=== PATIENT | male | born 1985 | race Caucasian/White ===

== ENCOUNTER 2017-04-16 22:13 | Emergency (ER) | payer OTHER ==
[~2017-04-16] VITALS: Ht 134.6 cm; Wt 43.1 kg
[~2017-04-16 22:13] MED LIST: ACET500 PT; AMPDEX30CR PT; AMPDEX5 PT; Acephen650 MG PR; Acidophilus La100 GM PT; Amoxicilli400 MG/5 M PO; CEPH125SU PO; CHILDREN'S325 MG/10. PO; CHILDREN'S325 MG/10. PT; CULTURELLE KID1 EAC2 PT; Duoneb 2.5-0.5 M3 ML INH; ERYT.5TO OU; FAMO20 PT; FAMO8SU PT; GLIP5 PEG; GLIP5 PO; GLIP5 PT; IBUP100S PO; Invanz1 GM IV; LACT10SY PT; LAVAP17G PO; LAVAP17G PT; LEVFLO250; LEVO750 PEG; LEVO750 PO; LEVO750 PT; LINZESS145 MCG PO; LINZESS145 MCG PT; LINZESS290 MCG; MEGA PROBIOTIC1 EACH PT; NYSTRIT TOP; OMEP20ER PO; ONDA4 PT; ONDA4SO PT; PRED10 PO; PROBIOTIC1 EAC1 PO; Prednisolo15 MG/5 ML PO; SENN187 PO; SUMA25 PO; SUMA25 PT; Zithromax200 MG/5 M PO
[2017-04-17 00:59] LABS: Source, Urine Urostomy Bag
[2017-04-17 01:02] LABS: Bilirubin, Urine Neg (Neg); Blood, Urine 5+ (Neg); Glucose Qualitative, Urine Neg (Neg); Ketones, Urine Neg (Neg); Leukocyte Esterase, Urine 3+ (Neg); Nitrite, Urine Pos (Neg); Protein, Urine 2+ (Neg); Urobilinogen, Urine NORM (Normal)
[2017-04-17 01:20] LABS: Appearance, Urine Hazy (Clear); Color, Urine Yellow (P-Yellow)
[2017-04-17 01:21] LABS: Amorphous Light (0-Heavy); Bacteria Few /hpf; Red Blood Cells, Urine Rare /hpf (0-2); Squamous Epithelial Cells Not Seen /hpf (Few); Triple Phosphate Crystals Mod /hpf
[2017-04-17 02:31] LABS: BASOPHILS ABSOLUTE AUTO 0.12 K/mm3 (0.00-0.23); BASOPHILS PERCENT AUTO 1 % (0-2); EOSINOPHILS ABSOLUTE AUTO 0.35 K/mm3 (0.00-0.68); EOSINOPHILS PERCENT AUTO 2 % (0-6); Hematocrit 43.1 % (37.0-53.0); Hemoglobin 13.4 g/dL (13.5-17.5); IMMATURE GRAN ABSOLUTE AUTO 0.04 K/mm3 (0.00-0.10); IMMATURE GRAN PERCENT AUTO 0 % (0-1); LYMPHOCYTES ABSOLUTE AUTO 2.32 K/mm3 (0.84-5.20); LYMPHOCYTES PERCENT AUTO 15 % (21-46); MONOCYTES ABSOLUTE AUTO 1.37 K/mm3 (0.16-1.47); MONOCYTES PERCENT AUTO 9 % (4-13); Mean Corpuscular HGB Conc 31.1 g/dL (31.5-36.5); Mean Corpuscular Volume 80 fL (80-100); NEUTROPHILS ABSOLUTE AUTO 11.08 K/mm3 (1.96-9.15); NEUTROPHILS PERCENT AUTO 72 % (41-73); Platelet Count 392 K/mm3 (150-400); RDW Coefficient Variation 15.5 % (11.7-14.2); Red Blood Cell Count 5.36 M/mm3 (4.30-5.90); White Blood Cell Count 15.28 K/mm3 (4.00-11.30)
[2017-04-17 02:49] LABS: Albumin, Blood 3.5 g/dL (3.4-5.0); Albumin/Globulin Ratio 0.6 (0.8-1.8); Bilirubin, Total 0.7 mg/dL (0.1-1.0); Creatinine, Blood 1.6 mg/dL (0.60-1.20); Globulin, Blood 5.4 g/dL (2.2-4.0); Potassium, Blood 3.7 mmol/L (3.5-5.5); Total Protein, Blood 8.9 g/dL (6.4-8.2)
[2017-04-17] MEDS ORDERED: Cephalexin250 MG/5 M PO (03:19)
[2017-08-04] MEDS ORDERED: TOPI25 PT (09:47)
[2017-08-04] MEDS ORDERED: IBUP100S PT (09:49)
[2017-08-04] MEDS ORDERED: MAPAP500 MG/15 PT (09:50)
[2017-08-04] MEDS ORDERED: LINZESS145 MCG PT (09:51)
[2017-08-04] MEDS ORDERED: GLIP5 PT (09:53)
== END 2017-04-17 03:50 | disposition home or self-care (01) ==
LOC: ER 22:13
PROVIDERS: Emergency Medicine
DX: N39.0 Urinary tract infection, site not specified (principal); Z88.8 Allergy status to other drugs, medicaments and biological substances; Z79.899 Other long term (current) drug therapy; Z79.2 Long term (current) use of antibiotics
CPT/HCPCS: 80053; 81001; 83605; 85025; 87040; 87086; 99283